=== PATIENT | female | born 1965 | race Caucasian/White ===

== ENCOUNTER 2021-06-19 18:28 | Emergency (ER) | payer SELFPAY ==
[2021-06-19] MEDS ORDERED: Acetaminophen 500 MG TAB ONE (21:54)
[2021-06-19] MEDS ORDERED: Ketorolac Tromethamine 30 MG/ML VIAL ONE (21:55)
== END 2021-06-19 22:04 | disposition home or self-care (01) ==
LOC: ERS 18:28
DX: I10 Essential (primary) hypertension (principal)
CPT/HCPCS: 93005; 96372; J1885